=== PATIENT | female | born 2000 | race Caucasian/White ===

== ENCOUNTER 2019-01-16 14:29 | Emergency (ER) | payer SELFPAY ==
[2019-01-16 15:38] VITALS: BP 130/73
--- NOTE | 2019-01-16 15:54 | UC ---
Respiratory Complaint HPI - HPI Summary HPI Summary: Has had a cough for a week and a half but not daily. 2 days ago cough worsened and she thinks she got it from her boyfriend who also states he was sick. she has an inhaler for when she plays sports, has not used it yet. sometimes she feels short of breath. - History of Current Complaint Chief Complaint: UCGeneralIllness Stated Complaint: UPPER RESPIRATORY Time Seen by Provider: 01/16/19 15:41 Hx Obtained From: Patient Hx Last Menstrual Period: 01/02/19 ?: No - iud Pain Intensity: 5 Pain Scale Used: 0-10 Numeric Associated Signs And Symptoms: Negative: Dyspnea, Fever, Wheezing, Dizziness - Allergies/Home Medications Allergies/Adverse Reactions: Allergies Allergy/AdvReac Type Severity Reaction Status Date / Time amoxicillin Allergy Rash Verified 01/16/19 15:29 azithromycin Allergy Rash Verified 01/16/19 15:29 cefdinir Allergy Rash Verified 01/16/19 15:29 Penicillins Allergy Rash Verified 01/16/19 15:29 Sulfa (Sulfonamide Allergy Anaphylatic Verified 01/16/19 15:29 Antibiotics) Shock Home Medications: Home Medications Albuterol HFA INHALER* [Ventolin HFA Inhaler*] 1 - 2 puff INH Q4H PRN 01/16/19 [ History Confirmed 01/16/19] Dm/PE/Acetaminophen/Doxylamine [Bianca-[place] Plus Day-Night Cp] 1 each PO BID PRN 01/16/19 [History Confirmed 01/16/19] Levonorgestrel (Iud) [Kyleena IUD] 17.5 mcg IU ONCE 01/16/19 [History Confirmed 01/16/19] Montelukast Sodium TAB* [Singulair TAB*] 10 mg PO DAILY 01/16/19 [History Confirmed 01/16/19] PARoxetine HCl [Paroxetine HCl] 20 mg PO DAILY 01/16/19 [History Confirmed 01/16] busPIRone TAB* [Buspar TAB*] 5 mg PO BID 01/16/19 [History Confirmed 01/16/19] hydrOXYzine HCL TAB* [Atarax 10 MG TAB*] 10 mg PO TID PRN 01/16/19 [History Confirmed 01/16/19] PMH/Surg Hx/FS Hx/Imm Hx Previously Healthy: Yes - Surgical History Surgical History: None - Family History Known Family History: Positive: None - Social History Alcohol Use: Occasionally Substance Use Type: None Smoking Status (MU): Never Smoked Tobacco Review of Systems All Other Systems Reviewed And Are Negative: Yes Constitutional: Negative: Fever Skin: Negative: Rash Respiratory: Positive: Shortness Of Breath, Cough Cardiovascular: Positive: Negative Neurological: Negative: Headache Physical Exam Triage Information Reviewed: Yes Appearance: Well-Appearing Vital Signs: Initial Vital Signs Temp 99 F 01/16/19 15:33 Pulse 80 01/16/19 15:33 Resp 16 01/16/19 15:33 BP 130/73 01/16/19 15:33 Pulse Ox 100 01/16/19 15:33 Vital Signs Reviewed: Yes Eyes: Positive: Conjunctiva Clear ENT: Positive: Pharynx normal, TMs normal, Uvula midline. Negative: Muffled voice Neck: Positive: Supple, Nontender, No Lymphadenopathy Respiratory Exam: Normal Cardiovascular Exam: Normal Neurological: Positive: Alert Skin: Negative: Rashes Respiratory Course/Dx - Course Course Of Treatment: URI symptoms for approx3-7 days w/ intermittent symptoms. Has sick contact at home. Vitals are good and exam unremarkable. likely viral etiology. 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 During visit she used albuterol and she felt better. - Differential Dx/Diagnosis Differential Diagnosis/HQI/PQRI: Asthma, Bronchitis, Lower Resp Infection, Other Provider Diagnosis: URI (upper respiratory infection) Discharge ED - Sign-Out/Discharge Documenting (check all that apply): Patient Departure All imaging exams completed and their final reports reviewed: No Studies - Discharge Plan Condition: Good Disposition: HOME Patient Education Materials: Upper Respiratory Infection (ED) Forms: *School Release Referrals: Darrian Traore, GYMNASTICS COACH [Primary Care Provider] - Additional Instructions: If shortness of breath worsens in anyway please go to the emergency room - Billing Disposition and Condition Condition: GOOD Disposition: Home - Attestation Statements Provider Attestation: I was available for consult. This patient was seen by the [facility]. The patient was not presented to , seen by or examined by -Kaela Nance MD
== END 2019-01-16 16:25 | disposition home or self-care (01) ==
LOC: UCCORT 14:29
DX: J06.9 Acute upper respiratory infection, unspecified (principal); Z88.0 Allergy status to penicillin; Z88.1 Allergy status to other antibiotic agents; Z88.2 Allergy status to sulfonamides
CPT/HCPCS: 99201; G0463